=== PATIENT | male | born 1960 | race African-American/Black ===

== ENCOUNTER 2019-11-29 01:45 | Emergency (ER) | payer SELFPAY ==
[~2019-11-29] VITALS: Ht 182.9 cm; Wt 86.0 kg
[2019-11-29 03:10] VITALS: BP 134/74
== END 2019-11-29 03:12 | disposition home or self-care (01) ==
LOC: ER 01:45
DX: F43.22 Adjustment disorder with anxiety (principal); S29.8XXA Other specified injuries of thorax, initial encounter; I10 Essential (primary) hypertension; Y35.833A Legal intervention involving a conducted energy device, suspect injured, initial encounter; Y93.89 Activity, other specified; Y92.89 Other specified places as the place of occurrence of the external cause; I49.5 Sick sinus syndrome
CPT/HCPCS: 99283

== ENCOUNTER 2022-04-22 07:07 | Emergency (ER) | payer OTHER ==
[~2022-04-22] VITALS: Ht 180.3 cm; Wt 78.5 kg
[2022-04-22 08:00] VITALS: BP 160/85
== END 2022-04-22 08:56 | disposition left against medical advice (07) ==
LOC: ER 07:37
DX: R00.2 Palpitations (principal); I10 Essential (primary) hypertension; F20.9 Schizophrenia, unspecified; Z95.0 Presence of cardiac pacemaker
CPT/HCPCS: 99283